=== PATIENT | female | born 1980 | race Caucasian/White ===

== ENCOUNTER 2017-12-12 13:42 | Emergency (ER) | payer BC ==
[2017-12-12 14:07] LABS: ADD MAN DIFF? NO
[2017-12-12 14:11] LABS: BASO # 0.1 x10^3/uL (0.0-0.2); BASO % 1 % (0-3); EOS # 0.2 x10^3/uL (0.0-0.7); EOS % 3 % (0-3); HEMATOCRIT 42.8 % (36.0-47.0); HEMOGLOBIN 14.9 g/dL (12.0-15.5); LYMPH # 1.1 x10^3/uL (1.0-4.8); LYMPH % 13 % (24-48); MEAN CORPUSCULAR HEMOGLOBIN 31 pg (25-35); MEAN CORPUSCULAR HGB CONC 35 g/dL (31-37); MEAN CORPUSCULAR VOLUME 89 fL (79-100); MONO # 0.7 x10^3/uL (0.0-1.1); MONO % 9 % (0-9); NEUT % 75 % (31-73); PLATELET COUNT 264 x10^3/uL (140-400); RED BLOOD COUNT 4.79 x10^6/uL (3.50-5.40); RED CELL DISTRIBUTION WIDTH 13.2 % (11.5-14.5); WHITE BLOOD COUNT 8.1 x10^3/uL (4.0-11.0)
[2017-12-12 14:21] LABS: URINE HCG POC HCG NEGATIVE (Negative)
[2017-12-12 14:23] LABS: ANION GAP 11 (6-14); BILIRUBIN,URINE NEGATIVE (NEG); BLOOD UREA NITROGEN 16 mg/dL (7-20); BUN/CREATININE RATIO 18 (6-20); CALCIUM 8.7 mg/dL (8.5-10.1); CARBON DIOXIDE 23 mmol/L (21-32); CHLORIDE 104 mmol/L (98-107); CLARITY,URINE CLEAR; COLOR,URINE YELLOW; CREATININE 0.9 mg/dL (0.6-1.0); GFR 69.7; GLUCOSE 103 mg/dL (70-99); GLUCOSE,URINE NEGATIVE (NEG); NITRITE,URINE NEGATIVE (NEG); PH,URINE 5.5; PROTEIN,URINE 30 mg/dL (NEG-TRACE); SODIUM 138 mmol/L (136-145); UROBILINOGEN,URINE 0.2 mg/dL (0.2 mg/dL)
[2017-12-12 14:29] LABS: ALBUMIN 3.8 g/dL (3.4-5.0); ALBUMIN/GLOBULIN RATIO 0.9 (1.0-1.7); ALK PHOS 78 U/L (46-116); ALT (SGPT) 17 U/L (14-59); AST (SGOT) 15 U/L (15-37); CREATINE KINASE 60 U/L (26-192); TOTAL BILIRUBIN 0.8 mg/dL (0.2-1.0)
[2017-12-12] MEDS: KETOROLAC 30 MG/ML INJ. IV (14:29)
[2017-12-12 14:31] LABS: BACTERIA,URINE 0 /HPF (0-FEW); SQUAMOUS EPITHELIAL CELL,UR OCC /LPF
[2017-12-12 14:32] LABS: BARBITURATES NEG (NEG); BENZODIAZEPINES NEG (NEG); CANNABINOIDS NEG (NEG); COCAINE POS (NEG); METHADONE NEG (NEG); OPIATES NEG (NEG); PHENCYCLIDINE NEG (NEG)
[2017-12-12 14:37] LABS: AMPHETAMINE/METHAMPHETAMINE NEG (NEG)
[2017-12-12 14:37] LABS: TROPONINI < 0.017 ng/mL (0.000-0.055)
[2017-12-12 14:38] LABS: CKMB INDEX 0.5 % (0-4); CKMB MASS 0.5 ng/mL (0.0-3.6); CREATINE KINASE 109 U/L (26-192); ETHANOL, URINE NEG (NEG)
== END 2017-12-12 15:11 | disposition home or self-care (01) ==
LOC: ER 15:11
DX: R07.89 Other chest pain (principal); N39.0 Urinary tract infection, site not specified; G43.909 Migraine, unspecified, not intractable, without status migrainosus
CPT/HCPCS: 36415; 71045; 80053; 80307; 81001; 81025; 82550; 82553; 84484; 85025; 93005; 96374; 99285-25; J1885

== ENCOUNTER → 2018-07-03 | Day surgery (SDC) | payer BC ==
[~2018-07-03] MED LIST: IBUP-1060 PO; IV RINGERS,LACTATED 1000ML 1,000 ML IV SCH; LIDOCAINE 1% PF 2 ML VIAL. ID PRN; METO10TA81 PO; MIDAZOLAM HCL/PF 2 MG/2 ML VIAL. IV PRN; NITR100C62 PO; PROPOFOL 40 ML IV ONE; SUMA50TA3 PO; fentaNYL PF VIAL 100 MCG/2 ML VIAL IV PRN
[2018-07-03 13:45] LABS: U PREG PATIENT NEGATIVE (NEG)
[2018-07-03 14:48] VITALS: BP 105/70
--- NOTE | 2018-07-03 17:33 | CONS ---
DATE OF CONSULTATION: 07/03/2018 REFERRING PHYSICIAN: Dr. Janna Cifuentes. HISTORY OF PRESENT ILLNESS: A 37-year-old female with past medical history significant for some high blood pressure, headaches, and delayed gastric emptying seen for change in bowel habits. She has noted increased alterations in bowel movements without bleeding, diarrhea and constipation. There has been no exotic water consumption or recent antibiotics. Family history is positive for colon cancer with father and grandmother. Weight and appetite are stable and with the recent changes, she requests additional evaluation. PAST MEDICAL HISTORY: 1. Delayed gastric emptying. 2. Hypertension. ALLERGIES: None. MEDICATIONS: Include Ibuprofen, metoclopramide and Imitrex. SOCIAL HISTORY: Social drinker, nonsmoker. FAMILY HISTORY: Significant for colon cancer in father and grandmother. Hypertension in father, grandfather and grandmother. PAST SURGICAL HISTORY: Noncontributory. REVIEW OF SYSTEMS: Per records. PHYSICAL EXAMINATION: GENERAL: A well-nourished, well-developed female, who is alert, cooperative, in no acute distress. VITAL SIGNS: Temperature 97.9, pulse 80, respirations 20. HEENT: Normocephalic and atraumatic head. Pupils and extraocular muscles are not tested. Sclerae anicteric. NECK: Supple. LUNGS: Clear. CARDIOVASCULAR: Reveals an S1, S2 without S3, S4 or appreciable murmur. ABDOMEN: Soft abdomen, normal bowel sounds without appreciable hepatosplenomegaly. EXTREMITIES: Reveals no cyanosis, clubbing or edema. IMPRESSION AND PLAN: Change in bowel habits, etiology is to be determined. Differential does include collagenous colitis, inflammatory bowel disease, irritable bowel syndrome, colon cancer and colon polyps. Therefore, recommend colonoscopy to further assess. Risks and benefits of procedure including risk of hemorrhage and perforation during the operation have been discussed with the patient and is willing to proceed at this time. NURIS DOS SANTOS MD DR: ROYCE/naun JOB#: [id number] / [id number]
== END | disposition home or self-care (01) ==
LOC: SURG 13:06
PROVIDERS: ATTEND Internal Medicine Gastroenterology
DX: K64.0 First degree hemorrhoids (principal); I10 Essential (primary) hypertension; Z80.0 Family history of malignant neoplasm of digestive organs; Z79.899 Other long term (current) drug therapy; Z82.49 Family history of ischemic heart disease and other diseases of the circulatory system; Z72.89 Other problems related to lifestyle
CPT/HCPCS: 45378; 81025; J2704